=== PATIENT | female | born 1970 | race Asian ===

== ENCOUNTER → 2018-11-27 | Outpatient (CLI) | payer OTHER | END | disposition home or self-care (01) | LOC: RADPV 13:32 | PROVIDERS: ATTEND Legal Medicine | DX: N95.0 Postmenopausal bleeding (principal); J45.909 Unspecified asthma, uncomplicated | CPT/HCPCS: 76830; 76856 ==

== ENCOUNTER → 2021-05-15 | Outpatient (CLI) | payer OTHER ==
[~2021-05-15] MED LIST: GADOTERATE MEGLUMINE 10 MMOL/20 ML VIAL IVP ONE
== END | disposition home or self-care (01) ==
LOC: RADMN 09:47
PROVIDERS: ATTEND Legal Medicine
DX: R91.8 Other nonspecific abnormal finding of lung field (principal)
CPT/HCPCS: 74183; Q9967